=== PATIENT | female | born 1995 | race Caucasian/White ===

== ENCOUNTER 2020-07-17 16:47 | Emergency (ER) | payer SELFPAY ==
[~2020-07-17] VITALS: Ht 165.1 cm; Wt 79.4 kg
[~2020-07-17 16:47] MED LIST: CORTISPORIN EAR10 M1 AD; CYCLOBENZAPRINE10 MG PO; DEPO-MEDRO40 MG/1 ML IJ; GUAIATUSSIN AC118 ML PO; KEFLEX500 MG PO; LAMICTAL25 MG PO; MELOXICAM7.5 MG PO; NORCO 5-325 TA1 EACH PO; PREDNISONE20 MG PO; PROVENTIL HFA6.7 GM INH; VENTOLIN HFA18 GM IH; ZITHROMAX250 MG PO
== END 2020-07-17 19:57 | disposition home or self-care (01) ==
LOC: ED 16:47
DX: R45.851 Suicidal ideations (principal); F17.200 Nicotine dependence, unspecified, uncomplicated; Z88.0 Allergy status to penicillin
CPT/HCPCS: 80053; 80176; 81001; 84443; 84703; 85025; 99284; G0480

== ENCOUNTER 2024-03-03 20:24 | Emergency (ER) | payer OTHER ==
[~2024-03-03] VITALS: Ht 165.1 cm; Wt 99.7 kg
[~2024-03-03 20:24] MED LIST changes: +ASHLYNA 0.15-01 EACH PO; +CARDURA4 MG PO; +INVEGA6 MG PO; +KRILL OIL500 MG PO; +L-METHYLFOLATE15 M1 PO; +LITHIUM CARBON450 MG PO; +OSTERA TABLET1 EACH PO; +TRAZODONE HCL100 MG PO
[2024-03-03] MEDS ORDERED: IBUPROFEN 800 MG TAB PO ONE (23:15)
[2024-03-03] MEDS ORDERED: DIPHTH,PERTUSS(ACELL),TET VAC 0.5 ML SYRINGE IM ONE (23:15)
[2024-03-04 00:04] VITALS: BP 141/85
== END 2024-03-04 00:05 | disposition home or self-care (01) ==
LOC: ED 20:24
DX: S50.02XA Contusion of left elbow, initial encounter (principal); F17.200 Nicotine dependence, unspecified, uncomplicated; W17.89XA Other fall from one level to another, initial encounter; Z79.899 Other long term (current) drug therapy; Z88.0 Allergy status to penicillin
CPT/HCPCS: 73080; 90715; A9270

== ENCOUNTER 2025-04-01 17:31 | Emergency (ER) | payer MEDICARE, OTHER ==
[~2025-04-01] VITALS: Ht 165.1 cm; Wt 96.4 kg
[2025-04-01] MEDS ORDERED: CHLORPROMAZINE10 MG PO (17:47)
[2025-04-01] MEDS ORDERED: CHLORPROMAZINE200 MG PO (17:48)
[2025-04-01] MEDS ORDERED: diazePAM 10 MG/2 ML SYR IV ONE (18:15)
[2025-04-01] MEDS ORDERED: MORPHINE SULFATE 4 MG/ML VIAL IV ONE (18:15)
[2025-04-01] MEDS ORDERED: LIDOCAINE1 EAC1 TOP (19:01)
[2025-04-01] MEDS ORDERED: IBU600 MG PO (19:01)
[2025-04-01] MEDS ORDERED: CYCLOBENZAPRINE10 MG PO (19:01)
[2025-04-01] MEDS ORDERED: CYCLOBENZAPRINE HCL 10 MG HOME.PACK PO ONE (19:15)
[2025-04-01 19:29] VITALS: BP 134/81
== END 2025-04-01 19:29 | disposition home or self-care (01) ==
LOC: ED 17:31
DX: M54.50 Low back pain, unspecified (principal); F17.200 Nicotine dependence, unspecified, uncomplicated; Z88.0 Allergy status to penicillin; Z88.1 Allergy status to other antibiotic agents; Z79.899 Other long term (current) drug therapy
CPT/HCPCS: 96374; 99283-25; J3360

== ENCOUNTER 2025-05-03 08:17 | Emergency (ER) | payer MEDICARE, OTHER ==
[~2025-05-03] VITALS: Ht 165.1 cm; Wt 93.0 kg
[~2025-05-03 08:17] MED LIST changes: +CHLORPROMAZINE10 MG PO; +CHLORPROMAZINE200 MG PO; +IBU600 MG PO; +LIDOCAINE1 EAC1 TOP
[2025-05-03] MEDS ORDERED: ONDANSETRON ODT8 MG PO (08:28)
[2025-05-03] MEDS ORDERED: LITHIUM CARBON300 MG PO (08:28)
[2025-05-03] MEDS ORDERED: NORETHINDRONE0.35 MG PO (08:29)
[2025-05-03 08:37] LABS: BASOPHILS 0.3 % (0.1-1.2); EOSINOPHILS 0.8 % (0.7-5.8); LYMPHOCYTES 12.2 % (19.3-51.7); MCH 30.9 PG (25.6-32.2); MCHC 35.2 g/dL (32.2-35.5); MCV 88.0 fL (79.4-94.8); MONOCYTES 5.8 % (4.7-12.5); NEUTROPHILS 80.5 % (34.0-71.1); RBC 5.17 M/uL (3.93-5.22)
[2025-05-03] MEDS ORDERED: SODIUM CHLORIDE 0.9% 1,000 ML IV PRN (08:45)
[2025-05-03 08:53] LABS: ALT (SGPT) 30.0 U/L (14-59); AST (SGOT) 15.0 U/L (15-37); GLOMERULAR FILTRATION RATE,EST 89.0 mL/min (>60); PROTEIN, TOTAL 7.7 g/dL (6.4-8.2); UREA NITROGEN 6.0 mg/dL (7-18)
[2025-05-03 10:59] LABS: BLOOD/HGB, URINE NEGATIVE (Negative); KETONE, URINE SMALL (Negative); LEUK ESTERASE, URINE NEGATIVE (negative); NITRITE, URINE NEGATIVE (negative)
[2025-05-03 11:07] LABS: CRYSTALS, URINE NONE SEEN (0-1+); EPITHELIAL CELLS, URINE SQUAMOUS 3+ /lpf (0-1+)
[2025-05-03 11:08] LABS: BACTERIA, URINE NONE SEEN /hpf (negative); CASTS, URINE NONE SEEN \\lpf; REFLEX CULTURE, URINE No (No)
[2025-05-03 11:48] VITALS: BP 127/69
== END 2025-05-03 11:48 | disposition home or self-care (01) ==
LOC: ED 08:17
PROVIDERS: Emergency Medicine
DX: R11.2 Nausea with vomiting, unspecified (principal); D72.829 Elevated white blood cell count, unspecified; F17.200 Nicotine dependence, unspecified, uncomplicated; Z88.0 Allergy status to penicillin; Z79.899 Other long term (current) drug therapy
CPT/HCPCS: 36415; 74177; 80053; 81001; 83690; 84703; 85025; 96361; 96374; 99284-25; J2405; J7030; Q9967

== ENCOUNTER 2025-08-19 13:37 | Emergency (ER) | payer MEDICARE, OTHER ==
[~2025-08-19] VITALS: Ht 165.1 cm; Wt 92.7 kg
[~2025-08-19 13:37] MED LIST changes: +LITHIUM CARBON300 MG PO; +NORETHINDRONE0.35 MG PO; +ONDANSETRON ODT8 MG PO
[2025-08-19] MEDS ORDERED: PROCHLORPERAZINE EDISYLATE 10 MG/2 ML VIAL IV ONE (14:30)
[2025-08-19] MEDS ORDERED: SODIUM CHLORIDE 0.9% 1,000 ML IV PRN (14:30)
[2025-08-19 16:11] VITALS: BP 119/76
== END 2025-08-19 16:11 | disposition home or self-care (01) ==
LOC: ED 13:37
DX: R51.9 Headache, unspecified (principal); F17.200 Nicotine dependence, unspecified, uncomplicated; Z88.0 Allergy status to penicillin; Z88.1 Allergy status to other antibiotic agents
CPT/HCPCS: 96361; 96374; 96375; 99283-25; J0780; J1200; J7030